=== PATIENT | female | born 1985 | race Caucasian/White ===

== ENCOUNTER 2017-11-09 06:39 | Emergency (ER) | payer SELFPAY ==
[~2017-11-09] VITALS: Ht 162.6 cm; Wt 87.5 kg
[2017-11-09 06:45] VITALS: Ht 162.6 cm; Wt 87.5 kg
[2017-11-09 09:33] VITALS: BP 129/90
== END 2017-11-09 09:34 | disposition home or self-care (01) ==
LOC: ED 06:39
DX: M43.6 Torticollis (principal); M62.830 Muscle spasm of back
CPT/HCPCS: J1885

== ENCOUNTER 2018-05-06 14:31 | Emergency (ER) | payer OTHER ==
[~2018-05-06] VITALS: Ht 162.6 cm; Wt 83.9 kg
[2018-05-06 14:45] VITALS: Ht 162.6 cm; Wt 83.9 kg
[2018-05-06 16:44] VITALS: BP 131/83
== END 2018-05-06 16:45 | disposition home or self-care (01) ==
LOC: ED 14:31
DX: M54.5 Low back pain (principal)
CPT/HCPCS: J1885